=== PATIENT | male | born 1980 | race African-American/Black ===

== ENCOUNTER → 2017-01-28 | Outpatient (CLI) | payer OTHER | END | disposition home or self-care (01) | LOC: PTH.S 01-27 13:00 | DX: I10 Essential (primary) hypertension (principal) ==

== ENCOUNTER → 2017-02-25 | Outpatient (CLI) | payer SELFPAY ==
--- NOTE | 2017-03-05 09:18 | SS ---
ADMIT: 02/25/2017 RM/LOC: [facility] MR#: [id number] [facility] [address] [place], [place] [id number] LESA DELA CRUZ [address] [place] [address] Sleep Study SEX: M AGE: 37 : 1980 STUDY DATE: 02/25/2017 CLINICAL HISTORY: This is a 37-year-old male, body mass of 33.3, 77 inches tall, 283 pounds, who has symptoms of witnessed apneas, snoring, daytime fatigue, undergoing evaluation for obstructive sleep apnea. TECHNICAL DESCRIPTION: Diagnostic polysomnogram performed on night of 02/25/2017, attended by a trained genetic technologist. DIAGNOSTIC POLYSOMNOGRAM FINDINGS: SLEEP: Total time in bed is 454 minutes, total sleep time 422 minutes, sleep efficiency 93%. 63% hours spent in stage II sleep, 25.6% hours spent in stage REM. BREATHING: [id number]-si-[id number] predominant positional REM-related obstructive sleep apnea with apnea-hypopnea index of 11.4. Supine apnea-hypopnea index of 26.8. During the study, there were 16 central apneas, 4 obstructive apneas, and 60 obstructive hypopneas noted. There was predominance of obstructive events in REM sleep in supine position. OXYGEN SATURATION: Mean sleeping oxygen 93%. CARDIAC: Average heart rate 62 beats per minute. Normal sinus rhythm. MOVEMENTS/POSITION: During the study, the patient slept in supine lateral position with no significant leg movements. IMPRESSION/PLAN: Mild to moderate positional REM-related obstructive sleep apnea with apnea-hypopnea 11.4. Supine apnea-hypopnea 26.8. Recommend CPAP titration. Recommend losing weight. Recommend avoiding sedative and alcohol. Recommend refrain from driving if excessively sleepy. Recommend avoiding sleeping in supine position. Clinical correlation needed. CPAP titration is recommended. Kit Segura MD/ amie JOB #: [id number] CC: Hermelinda Morales MD, Attending Physician Hermelinda Morales MD, Family Physician Hermelinda Morales MD
== END | disposition home or self-care (01) ==
LOC: RESC 02-12 21:00
DX: G47.30 Sleep apnea, unspecified (principal); G47.33 Obstructive sleep apnea (adult) (pediatric)